=== PATIENT | female | born 1960 | race Two or more races ===

== ENCOUNTER 2022-07-23 15:51 | Emergency (ER) | payer MEDICAID, OTHER ==
[~2022-07-23] VITALS: Ht 157.5 cm; Wt 68.0 kg
[2022-07-23 17:31] VITALS: BP 174/78
[2022-07-23] MEDS ORDERED: HYDR-4902 PO (18:18)
[2022-07-23] MEDS ORDERED: HYDROcodone-ACET 5/325MG TAB PO ONE (18:30)
== END 2022-07-23 19:15 | disposition home or self-care (01) ==
LOC: ER 15:51
DX: S92.812A Other fracture of left foot, initial encounter for closed fracture (principal); X58.XXXA Exposure to other specified factors, initial encounter; Y93.89 Activity, other specified; Y92.89 Other specified places as the place of occurrence of the external cause; Y99.8 Other external cause status
CPT/HCPCS: 29515; 73610; 73630

== ENCOUNTER 2023-12-17 07:53 | Emergency (ER) | payer MEDICAID ==
[~2023-12-17] VITALS: Ht 154.9 cm; Wt 67.3 kg
[~2023-12-17 07:53] MED LIST: HYDR-4902 PO
[2023-12-17 08:02] VITALS: TEMP 97
[2023-12-17 09:36] VITALS: PULSE 117; RESP 18; O2SAT 96
[2023-12-17] MEDS: ACETAMINOPHEN 325 MG TAB PO ONE (10:29)
[2023-12-17 10:38] LABS: Basophils # (auto) 0.1 10 ^3/uL (0-0.2); Basophils % (auto) 0.7 % (0.0-2.0); Eosinophils # (auto) 0.1 10 ^3/uL (0-0.8); Eosinophils % (auto) 1.6 % (0.0-7.0); Hematocrit 42.6 % (36.0-46.0); Hemoglobin 14.7 g/dL (12.2-16.2); Lymphocytes # (auto) 2.5 10 ^3/uL (0.4-5.4); Lymphocytes % (auto) 29.1 % (10.0-50.0); Mean Corpuscular Hemoglobin 33.2 pg (28.0-32.0); Mean Corpuscular Hgb Conc. 34.5 g/dL (32.0-36.0); Mean Corpuscular Volume 96.3 fL (80.0-100.0); Monocytes # (auto) 0.5 10 ^3/uL (0-1.3); Monocytes % (auto) 6.3 % (0.0-12.0); Neutrophils # (auto) 5.3 10 ^3/uL (1.6-8.6); Neutrophils % (auto) 62.3 % (37.0-80.0); Nucleated Red Blood Cells % 0.1 %; Platelet Count (auto) 153 10^3/uL (140-450); Red Blood Cells 4.43 10^6/uL (4.0-5.20); Red Cell Distribution Width 13.6 % (11.8-14.3); White Blood Cell 8.4 10^3/uL (4.4-10.8)
[2023-12-17 10:47] LABS: Chloride 101 mmol/L (98-107); Sodium 136 mmol/L (136-145)
[2023-12-17 10:48] LABS: Anion Gap 8 (5-15); Carbon Dioxide 27 mmol/L (20-31)
[2023-12-17 10:53] LABS: BUN/Creatinine Ratio 9.6 (10.0-20.0); Blood Urea Nitrogen 7 mg/dL (9-23); Glucose 214 mg/dL (74-106)
[2023-12-17] MEDS: SILVER NITRATE-POTAS NITRA STICK TOP ONE (11:10)
[2023-12-17] MEDS: LIDOCAINE W/ EPINEPHRINE 2% INJ 20ML VIAL ID ONE (11:10)
[2023-12-17] MEDS: OXYMETAZOLINE HCL 0.05 % NASAL SPRAY 15ML EACHNOSTRI ONE (11:10)
[2023-12-17 12:12] LABS: INR 1.05 (0.9-1.15); Prothrombin Time 11.1 sec (9.3-11.8)
[2023-12-17 12:35] VITALS: BP 115/63; PULSE 86; RESP 16; O2SAT 97
[2023-12-17] MEDS ORDERED: AUG875T PO (12:41)
[2023-12-18] MEDS ORDERED: HYDR-4072 PO (02:23)
== END 2023-12-17 13:03 | disposition home or self-care (01) ==
LOC: ER 07:53
DX: R04.0 Epistaxis (principal); J32.9 Chronic sinusitis, unspecified; I10 Essential (primary) hypertension; E11.9 Type 2 diabetes mellitus without complications
CPT/HCPCS: 30901; 36415; 70450; 80048; 82962; 85025; 85610; 93005

== ENCOUNTER 2023-12-17 22:43 | Emergency (ER) | payer MEDICAID ==
[~2023-12-17] VITALS: Ht 154.9 cm; Wt 68.2 kg
[~2023-12-17 22:43] MED LIST changes: +AUG875T PO
[2023-12-17 23:45] LABS: Basophils # (auto) 0 10 ^3/uL (0-0.2); Basophils % (auto) 0.5 % (0.0-2.0); Eosinophils # (auto) 0.2 10 ^3/uL (0-0.8); Eosinophils % (auto) 2.6 % (0.0-7.0); Hematocrit 39.1 % (36.0-46.0); Hemoglobin 13.5 g/dL (12.2-16.2); Lymphocytes # (auto) 2.7 10 ^3/uL (0.4-5.4); Lymphocytes % (auto) 34.6 % (10.0-50.0); Mean Corpuscular Hemoglobin 33.3 pg (28.0-32.0); Mean Corpuscular Hgb Conc. 34.6 g/dL (32.0-36.0); Mean Corpuscular Volume 96.3 fL (80.0-100.0); Monocytes # (auto) 0.6 10 ^3/uL (0-1.3); Monocytes % (auto) 7.6 % (0.0-12.0); Neutrophils # (auto) 4.2 10 ^3/uL (1.6-8.6); Neutrophils % (auto) 54.7 % (37.0-80.0); Platelet Count (auto) 137 10^3/uL (140-450); Red Blood Cells 4.06 10^6/uL (4.0-5.20); Red Cell Distribution Width 13.7 % (11.8-14.3); White Blood Cell 7.7 10^3/uL (4.4-10.8)
[2023-12-17] MEDS: HYDROcodone-ACET 10/325MG TAB PO ONE (23:49)
[2023-12-17 23:54] LABS: Chloride 101 mmol/L (98-107); Potassium 4.3 mmol/L (3.5-5.1); Sodium 135 mmol/L (136-145)
[2023-12-17 23:55] LABS: Calcium 9.7 mg/dL (8.7-10.4); Carbon Dioxide 29 mmol/L (20-31)
[2023-12-18] LABS: BUN/Creatinine Ratio 15.7 (10.0-20.0); Blood Urea Nitrogen 13 mg/dL (9-23); Glucose 230 mg/dL (74-106)
[2023-12-18 00:08] LABS: INR 1.05 (0.9-1.15); Prothrombin Time 11.1 sec (9.3-11.8)
[2023-12-18 00:09] LABS: Anion Gap 5 (5-15)
[2023-12-18] MEDS ORDERED: HYDR-4072 PO (02:23)
[2023-12-18] MEDS: cloNIDine HCL 0.1 MG TAB PO ONE (02:42)
[2023-12-18 02:46] VITALS: BP 183/122; TEMP 97.7
[2023-12-18 02:54] VITALS: PULSE 76; RESP 16; O2SAT 96
== END 2023-12-18 03:53 | disposition home or self-care (01) ==
LOC: ER 22:43
DX: R04.0 Epistaxis (principal); I10 Essential (primary) hypertension; E11.9 Type 2 diabetes mellitus without complications
CPT/HCPCS: 30901; 36415; 80048; 85025; 85610

== ENCOUNTER 2024-04-15 06:33 | Inpatient (IN) | payer MEDICAID ==
[2024-04-15] VITALS (7 sets, daily range): BP systolic 83–121; BP diastolic 36–49; PULSE 63–112; RESP 16–30; TEMP 98.3–100.6; O2SAT 94–98
[~2024-04-15] VITALS: Ht 154.9 cm; Wt 70.4 kg
[~2024-04-15 06:33] MED LIST changes: +HYDR-4072 PO
--- NOTE | 2024-04-15 07:20 | DVH ---
EXAM: XR Chest, 1 View CLINICAL INDICATION: Hypotension TECHNIQUE: Frontal view of the chest. COMPARISON: None FINDINGS: LUNGS AND PLEURAL SPACES: Unremarkable. No consolidation. No pneumothorax. HEART: Unremarkable. No cardiomegaly. MEDIASTINUM: Unremarkable. Normal mediastinal contour. BONES/JOINTS: Unremarkable. No acute fracture. OTHER FINDINGS: . None. IMPRESSION: No acute cardiopulmonary process.
[2024-04-15] MEDS: SODIUM CHLORIDE 0.9% 2,000 ML IV ONE (08:01)
[2024-04-15] MEDS: ONDANSETRON HCL 4 MG/2 ML VIAL IV ONE (08:07)
[2024-04-15] MEDS: ACETAMINOPHEN 325 MG TAB PO ONE (08:09)
[2024-04-15] MEDS: VANCOMYCIN 1GM/250ML KIT 200 ML IV ONE (08:10)
[2024-04-15 08:11] LABS: Basophils # (auto) 0 10 ^3/uL (0-0.2); Basophils % (auto) 0.2 % (0.0-2.0); Eosinophils # (auto) 0 10 ^3/uL (0-0.8); Eosinophils % (auto) 0.3 % (0.0-7.0); Hematocrit 41.5 % (36.0-46.0); Hemoglobin 13.9 g/dL (12.2-16.2); Lymphocytes # (auto) 0.8 10 ^3/uL (0.4-5.4); Lymphocytes % (auto) 5.2 % (10.0-50.0); Mean Corpuscular Hemoglobin 31.5 pg (28.0-32.0); Mean Corpuscular Hgb Conc. 33.4 g/dL (32.0-36.0); Mean Corpuscular Volume 94.2 fL (80.0-100.0); Monocytes # (auto) 0.9 10 ^3/uL (0-1.3); Monocytes % (auto) 5.8 % (0.0-12.0); Neutrophils # (auto) 13.4 10 ^3/uL (1.6-8.6); Neutrophils % (auto) 88.5 % (37.0-80.0); Platelet Count (auto) 151 10^3/uL (140-450); Red Blood Cells 4.41 10^6/uL (4.0-5.20); Red Cell Distribution Width 12.7 % (11.8-14.3); White Blood Cell 15.1 10^3/uL (4.4-10.8)
[2024-04-15 08:12] LABS: Urine Bacteria None Seen /hpf (None Seen)
[2024-04-15 08:39] LABS: Urine Blood 2+ /uL (Negative); Urine Clarity Ex.Turbid (Clear); Urine Protein, UAD 1+ (Negative); Urine Specific Gravity 1.009 (1.001-1.035); Urine Squamous Epithelial Cell FEW /hpf (<5); Urine Urobilinogen Normal (Negative); Urine WBC 1635 /HPF (0-5); Urine WBC Clumps PRESENT /hpf (None Seen); Urine pH 5.5 (5.0-9.0)
[2024-04-15] MEDS: CEFEPIME 2GM/50ML NS 50 ML IV ONE (08:40)
[2024-04-15 08:41] LABS: Urine Color DARK YELLOW (Yellow)
[2024-04-15 08:46] LABS: Alanine Aminotransferase 20 U/L (7-40); Albumin 4.1 g/dL (3.2-4.8); Anion Gap 10 (5-15); Aspartate Aminotransferase 24 U/L (13-40); BUN/Creatinine Ratio 15.9 (10.0-20.0); Bilirubin, Total 0.9 mg/dL (0.2-1.0); Blood Urea Nitrogen 21 mg/dL (9-23); Calcium 9.6 mg/dL (8.7-10.4); Carbon Dioxide 26 mmol/L (20-31); Potassium 3.5 mmol/L (3.5-5.1)
[2024-04-15 08:47] LABS: Total Protein 7.5 g/dL (5.7-8.2)
[2024-04-15 08:48] LABS: Alkaline Phosphatase 129 U/L (46-116); Chloride 98 mmol/L (98-107); Glucose 248 mg/dL (74-106); Sodium 134 mmol/L (136-145)
--- NOTE | 2024-04-15 09:18 | ED.PDOC ---
History of Present Illness HPI Comments 63F presents with 5 days of dysuria, polyuria, 6/10 lower abdominal pain that radiates to her back. She also reports having fever chills and generalized weakness. She has not taken any medications for this yet. She has no exacerbating or alleviating factors. Chief Complaint: Abdominal Pain Time Seen by MD: 06:53 Allergies: Coded Allergies: NO KNOWN ALLERGIES (Unverified , 07/23/22) Home Meds Active Scripts Hydrocodone-Acetaminophen (Hydrocodone/Acetaminophen 10-325 mg) 1 Tab Tab, 1 TAB PO QIDPRN, #20 TAB Prov:LISA PALUMBO MD 12/18/23 Amoxicillin & Pot Clavulanate (AUGMENTIN TABLET) 875 Mg Tb, 875 MG PO BID for 5 Days, #10 TAB Prov:JER SOSA MD 12/17/23 Hydrocodone-Acetaminophen (Hydrocodone Bitartrate/AC 5-325 mg) 1 Tab Tab, 1 TAB PO BID PRN, #12 TAB 0 Refills Prov:RAFAELA HINOJOSA [facility] 07/23/22 Mode of Arrival: Ambulatory Past Medical History PAST MEDICAL HISTORY: DM, HTN Surgical History: Denies all surgeries [employer] History: No Pertinent [employer] History Family History Family History: Reviewed,noncontributory to illness, Unknown Social History Smoker: Non-Smoker Alcohol: Occasionally Drugs: Denies Drug Use Lives In: Home All Other Systems: Reviewed and Negative Physical Exam General Appearance: Mild Distress HEENT: Normal ENT Inspection Neck: Normal Respiratory: No Respiratory Distress Cardiovascular: Tachycardia Breast Exam: Deferred Gastrointestinal: Suprapubic, Tenderness Genitalia: Deferred Pelvic: Deferred Rectal: Deferred Extremities: Normal range of motion Neurologic: No Motor Deficits Cerebellar Function: NOT DONE Reflexes: NOT DONE Skin: Dry Lymphatic: NOT DONE Was a procedure done? Was a procedure done?: No Differential Dx Considerations may include: Pyelo, urinary tract infection, sepsis, myalgias X-Ray, Labs, Meds, VS Vital Signs Date Time Temp Pulse Resp B/P (MAP) Pulse Ox O2 Delivery O2 Flow Rate FiO2 04/15/24 06:45 98.4 88 18 89/47 (61) 96 Lab Test 04/15/24 07:25 04/15/24 06:45 Range/Units White Blood Count 15.1 H 4.4-10.8 10^3/uL Red Blood Count 4.41 4.0-5.20 10^6/uL Hemoglobin 13.9 12.2-16.2 g/dL Hematocrit 41.5 36.0-46.0 % Mean Corpuscular Volume 94.2 80.0-100.0 fL Mean Corpuscular Hemoglobin 31.5 28.0-32.0 pg Mean Corpuscular Hemoglobin Concent 33.4 32.0-36.0 g/dL Red Cell Distribution Width 12.7 11.8-14.3 % Platelet Count 151 140-450 10^3/uL Mean Platelet Volume 9.5 6.9-10.8 fL Neutrophils (%) (Auto) 88.5 H 37.0-80.0 % Lymphocytes (%) (Auto) 5.2 L 10.0-50.0 % Monocytes (%) (Auto) 5.8 0.0-12.0 % Eosinophils (%) (Auto) 0.3 0.0-7.0 % Basophils (%) (Auto) 0.2 0.0-2.0 % Neutrophils # (Auto) 13.4 H 1.6-8.6 10 ^3/uL Lymphocytes # (Auto) 0.8 0.4-5.4 10 ^3/uL Monocytes # (Auto) 0.9 0-1.3 10 ^3/uL Eosinophils # (Auto) 0 0-0.8 10 ^3/uL Basophils # (Auto) 0 0-0.2 10 ^3/uL Nucleated Red Blood Cells 0.0 % Sodium Level 134 L 136-145 mmol/L Potassium Level 3.5 3.5-5.1 mmol/L Chloride Level 98 98-107 mmol/L Carbon Dioxide Level 26 20-31 mmol/L Anion Gap 10 5-15 Blood Urea Nitrogen 21 9-23 mg/dL Creatinine 1.32 H 0.550-1.02 mg/dL Glomerular Filtration Rate Calc 46 >90 mL/min BUN/Creatinine Ratio 15.9 10.0-20.0 Serum Glucose 248 H 74-106 mg/dL Lactic Acid Level 1.7 0.4-2.0 mmol/L Calcium Level 9.6 8.7-10.4 mg/dL Total Bilirubin 0.9 0.2-1.0 mg/dL Aspartate Amino Transferase (AST) 24 13-40 U/L Alanine Aminotransferase (ALT) 20 7-40 U/L Alkaline Phosphatase 129 H 46-116 U/L Total Protein 7.5 5.7-8.2 g/dL Albumin 4.1 3.2-4.8 g/dL Urine Color Dark yellow Yellow Urine Clarity Ex.turbid Clear Urine pH 5.5 5.0-9.0 Urine Specific [place] 1.009 1.001-1.035 Urine Protein 1+ H Negative Urine Ketones Negative Negative Urine Blood 2+ H Negative /uL Urine Nitrite Negative Negative Urine Bilirubin Negative Negative Urine Urobilinogen Normal Negative mg/dL Urine Leukocyte Esterase 3+ Negative /uL Urine RBC 25 0 - 4 /hpf Urine WBC Clumps Present None Seen /hpf Urine Microscopic WBC 1635 H 0-5 /HPF Urine Squamous Epithelial Cells Few <5 /hpf Urine Bacteria None seen None Seen /hpf Urine Glucose 2+ H Normal mg/dL Current Medications Medications (Trade) Dose Ordered Sig/Bull Route Start Time Stop Time Status Last Admin Sodium Chloride 2,000 ml @ 1,000 mls/hr Q2H ONCE IV 04/15/24 07:00 04/15/24 08:59 DC 04/15/24 08:01 Ondansetron HCl (Zofran) 4 mg ONCE ONCE IV 04/15/24 07:00 04/15/24 07:01 DC 04/15/24 08:07 Acetaminophen (Tylenol Tablet) 650 mg ONCE ONCE PO 04/15/24 07:00 04/15/24 07:01 DC 04/15/24 08:09 Vancomycin HCl 200 ml @ 200 mls/hr ONCE ONCE IV 04/15/24 07:00 04/15/24 07:59 DC 04/15/24 08:10 Time of 1ST Reevaluation: 09:20 Reevaluation 1ST: Improved Patient Education/Counseling: Diagnosis, Treatment Family Education/Counseling: No Family Present Departure 1 Departure Time of Disposition: 09:21 (Patient with a urinary tract infection concerning for sepsis. We will empirically cover patient with antibiotics give patient the full fluid bolus the patient for further workup. Patient's blood pressure has been improving with the fluid bolus.) Impression: Primary Impression: Sepsis Qualified Codes: A41.9 - Sepsis, unspecified organism; R65.21 - Severe sepsis with septic shock; G72.81 - Critical illness myopathy Additional Impression: Urinary tract infection Qualified Codes: N30.00 - Acute cystitis without hematuria Disposition: ADMITTED INPATIENT Admit to: Tele Condition: Guarded Critical Care Note Critical Care Time?: Yes Critical care comment: Sepsis Authorized and Performed by: Juliano Cooney MD Total critical care time: Approximately 36 minutes Due to a high probability of clinically significant, life threatening deterioration, the patient required my highest level of preparedness to intervene emergently and I personally spent this critical care time directly and personally managing the patient. This critical care time included obtaining a history; examining the patient; pulse oximetry; ordering and review of studies; arranging urgent treatment with development of a management plan; evaluation of patient's response to treatment; frequent reassessment; and, discussions with other providers. This critical care time was performed to assess and manage the high probability of imminent, life-threatening deterioration that could result in multi-organ failure. It was exclusive of separately billable procedures and treating other patients and teaching time. Please see my other sections and the rest of the note for further information on patient assessment and treatment. Stability Stability form required: No Heart Score Heart Score: Heart Score Response (Comments) Value History N/A 0 EKG N/A 0 Age N/A 0 Risk Factors N/A 0 Troponin N/A 0 Total 0 JULIANO COONEY MD Apr 15, 2024 09:18
[2024-04-15] MEDS ORDERED: URSO300C2 PO (10:09)
[2024-04-15] MEDS ORDERED: LISI10TA34 PO (10:09)
[2024-04-15] MEDS ORDERED: METF-370 PO (10:09)
[2024-04-15] MEDS ORDERED: DEXTROSE (50%) 50ML SYRG IV PRN (10:15)
--- NOTE | 2024-04-15 10:32 | DVHHP2 ---
History of Present Illness Reason for Visit: Pelvic pain History of Present Illness Honey Galan is a 63-year-old female with past medical history of diabetes, hypertension, and fatty liver, who came in due to abdominal pain. Patient states her pain is in her lower abdomen/pelvic region, it started last Saturday with associated dysuria and frequency. She states her symptoms where worsening and progressed to bilateral flank pain causing her to come in. Cardiovascular: HTN Hepatobiliary: Other (fatty liver) Endocrine: Diabetes Past Surgical History: Cholecystectomy, Cataract Removal (bilateral) Smoke: No ALCOHOL: rare Drugs: None Lives: with Family Domestic Violence: Neg Review of Systems Constitutional: Yes: Fever, Chills; No: Sweats, Weakness, Malaise, Other Eyes: No: Pain, Vision change, Conjunctivae inflammation, Eyelid inflammation, Other, Redness ENT: No: Ear pain, Ear discharge, Nose pain, Nose discharge, Nose congestion, Mouth pain, Mouth swelling, Throat pain, Throat swelling, Other Respiratory: No: Cough, Dry, Shortness of breath, SOB with excertion, Wheezing, Hemoptysis, Pleuritic Pain, Sputum, Wheezing, Other Cardiovascular: No: Chest Pain, Palpitations, Orthopnea, Paroxysmal Noc. Dyspnea, Edema, Lt Headedness, Other Gastrointestinal: Nausea, Abdominal Pain (pelvic pain); No: Vomiting, Diarrhea, Constipation, Melena, Hematochezia, Other Genitourinary: No Dysuria, No Frequency, No Incontinence, No Hematuria, No Retention, No Other Musculoskeletal: back pain (bilateral flank pain); No: other, neck pain, shoulder pain, arm pain, hand pain, leg pain, foot pain Skin: No: Rash, Lesions, Jaundice, Bruising, Other Neurological: No: Weakness, Numbness, Incoordination, Change in speech, Confusion, Seizures, Other Allergies: Coded Allergies: NO KNOWN ALLERGIES (Unverified , 07/23/22) Medications Current Medications Medications Dose Ordered Sig/Bull Route Start Time Stop Time Status Last Admin Dose Admin Acetaminophen/ Hydrocodone Bitart 1 tab Q4HP PRN PO 04/15/24 10:15 UNV Ondansetron HCl 4 mg Q4HP PRN IV 04/15/24 10:15 UNV Docusate Sodium 100 mg BIDPRN PRN PO 04/15/24 10:15 UNV Acetaminophen 650 mg Q6HP PRN PO 04/15/24 10:15 UNV Ceftriaxone Sodium 50 ml @ 100 mls/hr DAILY@09 IV 04/16/24 09:00 UNV Exam Vital Signs Vital Signs Date Time Temp Pulse Resp B/P (MAP) Pulse Ox O2 Delivery O2 Flow Rate FiO2 04/15/24 06:45 98.4 88 18 89/47 (61) 96 General Appearance: Alert, Oriented X3, Cooperative, mild distress HEENT: Atraumatic, PERRLA Respiratory: Clear to auscultation, Normal air movement Cardiovascular: Regular rate, Normal S1, Normal S2, No murmurs Abdominal: Normal bowel sounds, Soft, Other (abdominal pain that radiates to bilateral flank pain) Extremities: No clubbing, No cyanosis, No edema, Normal pulses Skin: No rashes, No breakdown, No significant lesion Neuro: Normal gait, Normal speech, Strength at 5/5 X4 ext, Normal tone Psych/Mental Status: Mental status NL, Mood NL Labs/Xrays Labs Test 04/15/24 07:25 04/15/24 06:45 Range/Units White Blood Count 15.1 H 4.4-10.8 10^3/uL Red Blood Count 4.41 4.0-5.20 10^6/uL Hemoglobin 13.9 12.2-16.2 g/dL Hematocrit 41.5 36.0-46.0 % Mean Corpuscular Volume 94.2 80.0-100.0 fL Mean Corpuscular Hemoglobin 31.5 28.0-32.0 pg Mean Corpuscular Hemoglobin Concent 33.4 32.0-36.0 g/dL Red Cell Distribution Width 12.7 11.8-14.3 % Platelet Count 151 140-450 10^3/uL Mean Platelet Volume 9.5 6.9-10.8 fL Neutrophils (%) (Auto) 88.5 H 37.0-80.0 % Lymphocytes (%) (Auto) 5.2 L 10.0-50.0 % Monocytes (%) (Auto) 5.8 0.0-12.0 % Eosinophils (%) (Auto) 0.3 0.0-7.0 % Basophils (%) (Auto) 0.2 0.0-2.0 % Neutrophils # (Auto) 13.4 H 1.6-8.6 10 ^3/uL Lymphocytes # (Auto) 0.8 0.4-5.4 10 ^3/uL Monocytes # (Auto) 0.9 0-1.3 10 ^3/uL Eosinophils # (Auto) 0 0-0.8 10 ^3/uL Basophils # (Auto) 0 0-0.2 10 ^3/uL Nucleated Red Blood Cells 0.0 % Sodium Level 134 L 136-145 mmol/L Potassium Level 3.5 3.5-5.1 mmol/L Chloride Level 98 98-107 mmol/L Carbon Dioxide Level 26 20-31 mmol/L Anion Gap 10 5-15 Blood Urea Nitrogen 21 9-23 mg/dL Creatinine 1.32 H 0.550-1.02 mg/dL Glomerular Filtration Rate Calc 46 >90 mL/min BUN/Creatinine Ratio 15.9 10.0-20.0 Serum Glucose 248 H 74-106 mg/dL Lactic Acid Level 1.7 0.4-2.0 mmol/L Calcium Level 9.6 8.7-10.4 mg/dL Total Bilirubin 0.9 0.2-1.0 mg/dL Aspartate Amino Transferase (AST) 24 13-40 U/L Alanine Aminotransferase (ALT) 20 7-40 U/L Alkaline Phosphatase 129 H 46-116 U/L Total Protein 7.5 5.7-8.2 g/dL Albumin 4.1 3.2-4.8 g/dL Urine Color Dark yellow Yellow Urine Clarity Ex.turbid Clear Urine pH 5.5 5.0-9.0 Urine Specific [place] 1.009 1.001-1.035 Urine Protein 1+ H Negative Urine Ketones Negative Negative Urine Blood 2+ H Negative /uL Urine Nitrite Negative Negative Urine Bilirubin Negative Negative Urine Urobilinogen Normal Negative mg/dL Urine Leukocyte Esterase 3+ Negative /uL Urine RBC 25 0 - 4 /hpf Urine WBC Clumps Present None Seen /hpf Urine Microscopic WBC 1635 H 0-5 /HPF Urine Squamous Epithelial Cells Few <5 /hpf Urine Bacteria None seen None Seen /hpf Urine Glucose 2+ H Normal mg/dL EXAM: XR Chest, 1 View FINDINGS: LUNGS AND PLEURAL SPACES: Unremarkable. No consolidation. No pneumothorax. HEART: Unremarkable. No cardiomegaly. MEDIASTINUM: Unremarkable. Normal mediastinal contour. BONES/JOINTS: Unremarkable. No acute fracture. OTHER FINDINGS: . None. IMPRESSION: No acute cardiopulmonary process. Assessment/Plan Assessment/Plan Assessment: Pyelonephritis, Complicated UTI, Uncontrolled diabetes, Hypertension, Plan: Admit to Med-Surg, IV hydration, IV antibiotics, Urine culture, Pain management, A1c, Accu checks Q AC & HS with sliding scale, Home medications reconciled, Plan discussed with: Patient My Orders Orders - DAVID JAEGER Procedure Category Date Status Time Admit ADMIT 04/15/24 Transmitted 10:02 Code Status CODE 04/15/24 Transmitted 10:02 2 Gm Sodium Diet DIET 04/15/24 Transmitted Lunch Hydrocodone-Acet PHA 04/15/24 Logged 5/325mg Tab ([place] 10:15 Ondansetron Hcl PHA 04/15/24 Logged (Zofran) 10:15 Docusate Sodium PHA 04/15/24 Logged Capsule ([place]ace 10:15 Complete Blood Count LAB 04/16/24 Verified 04:00 Comprehensive LAB 04/16/24 Verified Metabolic Panel 04:00 Condition: Serious CINTHIA 04/15/24 In Process 10:02 Acetaminophen Tablet PHA 04/15/24 Logged (Tylenol Tablet) 10:15 Ceftriaxone 1gm/50ml PHA 04/16/24 Logged D5w (Rocephin) 09:00 Glucose Blood PHA 04/15/24 Verified (Accu-Chek Comfort 11:30 Bedtime Insulin Scale PHA 04/15/24 Verified 22:00 Moderate Insulin Ss PHA 04/15/24 Verified 11:30 Dextrose 50% Syringe PHA 04/15/24 Verified 10:15 Ursodiol (Actigall) PHA 04/15/24 Verified 22:00 (Nf) Lisinopril PHA 04/15/24 Verified 22:00 Date of Service: Apr 15, 2024 Billing Provider: DAVID JAEGER Common Visit Codes: [id number] INP/OBS CARE (MOD) DAVID JAEGER Apr 15, 2024 10:32
[2024-04-15] MEDS: SODIUM CHLORIDE 0.9% 1,000 ML IV ONE ×2 (10:57→15:45)
[2024-04-15] MEDS: LISINOPRIL 5 MG TAB PO SCH (11:00)
[2024-04-15] MEDS: ACCU-CHEK COMFORT CURVE STRIP VI SCH (11:30)
[2024-04-15] MEDS: ONDANSETRON HCL 4 MG/2 ML VIAL IV PRN (12:21)
[2024-04-15] MEDS: HYDROcodone-ACET 5/325MG TAB PO PRN (12:22)
[2024-04-15] MEDS: InsuLIN REG 1unit/0.01ml Soln (100units/ml) SC SCH ×2 (12:27→21:07)
[2024-04-15] MEDS: ACETAMINOPHEN 325 MG TAB PO PRN (13:41)
[2024-04-15] MEDS: SOD CHL 0.45% 1,000 ML IV ONE (20:53)
[2024-04-15] MEDS: URSODIOL 300 MG CAP PO SCH (21:01)
[2024-04-16 06:46] LABS: Alanine Aminotransferase 16 U/L (7-40); Albumin 3.2 g/dL (3.2-4.8); Alkaline Phosphatase 102 U/L (46-116); Anion Gap 10 (5-15); Aspartate Aminotransferase 21 U/L (13-40); Bilirubin, Total 0.5 mg/dL (0.2-1.0); Blood Urea Nitrogen 18 mg/dL (9-23); Carbon Dioxide 22 mmol/L (20-31); Chloride 106 mmol/L (98-107); Potassium 3.9 mmol/L (3.5-5.1); Sodium 138 mmol/L (136-145); Total Protein 6.1 g/dL (5.7-8.2)
[2024-04-16 06:52] LABS: Calcium 8.3 mg/dL (8.7-10.4); Glucose 155 mg/dL (74-106)
[2024-04-16 07:10] LABS: Basophils # (auto) 0 10 ^3/uL (0-0.2); Basophils % (auto) 0.2 % (0.0-2.0); Eosinophils # (auto) 0.1 10 ^3/uL (0-0.8); Eosinophils % (auto) 0.4 % (0.0-7.0); Hematocrit 37.1 % (36.0-46.0); Hemoglobin 12.4 g/dL (12.2-16.2); Lymphocytes % (auto) 6.8 % (10.0-50.0); Mean Corpuscular Hemoglobin 31.8 pg (28.0-32.0); Mean Corpuscular Hgb Conc. 33.4 g/dL (32.0-36.0); Mean Corpuscular Volume 95.2 fL (80.0-100.0); Monocytes # (auto) 1.4 10 ^3/uL (0-1.3); Monocytes % (auto) 9.2 % (0.0-12.0); Neutrophils # (auto) 12.5 10 ^3/uL (1.6-8.6); Neutrophils % (auto) 83.4 % (37.0-80.0); Nucleated Red Blood Cells % 0.1 %; Platelet Count (auto) 115 10^3/uL (140-450); Red Cell Distribution Width 13.2 % (11.8-14.3)
[2024-04-16 07:53] VITALS: PULSE 90; RESP 24; O2SAT 97
[2024-04-16] MEDS: cefTRIAXone 1GM/50ML D5W 50 ML IV SCH (09:02)
[2024-04-16 10:30] VITALS: BP 133/62; PULSE 97; TEMP 99.3; O2SAT 98
--- NOTE | 2024-04-16 12:17 | DVHPN2 ---
Subjective Patient reporting generalized body aches, bilateral flank plain, suprapubic pain. Reviewed: Care Plan, H&P Changes from previous H/P or p: No Changes General: Per HPI Eyes: No Pain, No Vision change, No Conjunctivae inflammation, No Eyelid inflammation, No Other, No Redness ENT: No Ear pain, No Ear discharge, No Nose pain, No Nose discharge, No Nose congestion, No Mouth pain, No Mouth swelling, No Throat pain, No Throat swelling, No Other Cardiovascular: No Chest Pain, No Palpitations, No Orthopnea, No Paroxysmal Noc. Dyspnea, No Edema, No Lt Headedness, No Other Respiratory: No Cough, No Dry, No Shortness of breath, No SOB with excertion, No Wheezing, No Hemoptysis, No Pleuritic Pain, No Sputum, No Other Gastrointestinal: Nausea; No Vomiting; Abdominal Pain (pelvic pain); No Diarrhea, No Constipation, No Melena, No Hematochezia, No Other Genitourinary: No Dysuria, No Frequency, No Incontinence, No Hematuria, No Retention, No Other Musculoskeletal: No other, No neck pain, No shoulder pain, No arm pain; back pain (bilateral flank pain); No hand pain, No leg pain, No foot pain Skin: No Rash, No Lesions, No Jaundice, No Bruising, No Other Objective Vitals Vital Signs Date Time Temp Pulse Resp B/P (MAP) Pulse Ox O2 Delivery O2 Flow Rate FiO2 04/16/24 10:30 99.3 97 133/62 (85) 98 99.3 04/16/24 07:53 24 Room Air* 0 21 Intake/Output Intake and Output 04/16/24 07:00 Intake Total 2000 ml Balance 2000 ml Intake IV Total 2000 ml # Voids 3 General Appearance: Alert, Oriented X3, Cooperative, mild distress HEENT: Atraumatic, PERRLA Lungs: Clear to auscultation, Normal air movement Cardiovascular: Normal S1, Normal S2 Musculoskeletal: Normal sensory function Extremities: No clubbing, No cyanosis, No edema Psych/Mental Status: Mental status NL, Mood NL Medications Current Medications Medications Dose Ordered Sig/Bull Route Start Time Stop Time Status Last Admin Dose Admin Acetaminophen/ Hydrocodone Bitart 1 tab Q4HP PRN PO 04/15/24 10:15 04/16/24 01:18 1 TAB Ondansetron HCl 4 mg Q4HP PRN IV 2/26/25 10:15 04/16/24 06:06 4 MG Docusate Sodium 100 mg BIDPRN PRN PO 04/15/24 10:15 Acetaminophen 650 mg Q6HP PRN PO 04/15/24 10:15 04/16/24 11:53 650 MG Diagnostic Test (Pha) 1 strip ACHS 04/15/24 11:30 04/16/24 11:54 1 STRIP Insulin Human Regular HS SC 04/15/24 22:00 04/15/24 21:07 4 UNITS Insulin Human Regular AC SC 04/15/24 11:30 04/16/24 11:52 2 UNITS Dextrose 50 ml UD PRN IV 04/15/24 10:15 Ursodiol 300 mg BID PO 04/15/24 22:00 04/16/24 10:01 300 MG Lisinopril 10 mg DAILY PO 04/15/24 11:00 04/16/24 10:11 10 MG Meropenem 50 ml @ 17 mls/hr Q8HR IV 04/16/24 14:00 UNV Laboratory Results Laboratory Tests 04/16/24 06:00 Chemistry Test 04/16/24 06:00 Albumin 3.2 g/dL (3.2-4.8) Calcium Level 8.3 mg/dL (8.7-10.4) L Total Protein 6.1 g/dL (5.7-8.2) LFT Test 04/16/24 06:00 Alanine Aminotransferase (ALT) 16 U/L (7-40) Alkaline Phosphatase 102 U/L (46-116) Aspartate Amino Transferase (AST) 21 U/L (13-40) Total Bilirubin 0.5 mg/dL (0.2-1.0) Urinalysis Test 04/15/24 06:45 Urine Color Dark yellow (Yellow) Urine Clarity Ex.turbid (Clear) Urine pH 5.5 (5.0-9.0) Urine Specific [place] 1.009 (1.001-1.035) Urine Protein 1+ (Negative) H Urine Ketones Negative (Negative) Urine Blood 2+ /uL (Negative) H Urine Nitrite Negative (Negative) Urine Bilirubin Negative (Negative) Urine Urobilinogen Normal mg/dL (Negative) Urine Leukocyte Esterase 3+ /uL (Negative) Urine RBC 25 /hpf (0 - 4) Urine WBC Clumps Present /hpf (None Seen) Urine Microscopic WBC 1635 /HPF (0-5) H Urine Squamous Epithelial Cells Few /hpf (<5) Urine Bacteria None seen /hpf (None Seen) Urine Glucose 2+ mg/dL (Normal) H Microbiology Microbiology Date/Time Source Procedure Growth Status 04/15/24 07:43 Blood Blood Culture - Preliminary Resulted 04/15/24 06:45 Voided Urine Urine Culture - Preliminary Resulted Labs and/or images reviewed: Labs reviewed by me, Image(s) reviewed by me Assessment/Plan Assessment/Plan Impression: -sepsis with Gram-negative rods in blood -complicated cystitis -diabetes mellitus, uncontrolled -primary hypertension Plan: -change antibiotic therapy to meropenem -blood and urine cultures: Both with Gram-negative rods -regular insulin sliding scale -restart IV hydration -pain management -transferred to telemetry floor -CT scan of abdomen and pelvis -echocardiogram: Indications, rule out endocarditis given bacteremia Total time spent with patient discussing and formulating plan of care: 35 minutes. This medical document was created using an electronic medical record system with [employer] dictation system. Although this document has been carefully reviewed, there may still be some phonetic and typographical errors. These areas are purely typographical due to imperfections of the software programs, and do not reflect any compromise in the patient's medical care. Plan discussed with: Patient, Other (RN) My Orders Orders - ERIN HAYWARD NP Procedure Category Date Status Time Meropenem 1gm Ivpb PHA 04/16/24 Logged (Merrem 1gm/ Ns) 14:00 Basic Metabolic Panel LAB 04/17/24 Verified 04:00 Complete Blood Count LAB 04/17/24 Verified 04:00 Ct Ab Pel Wo Con-No CT 04/16/24 Logged Oral Or Iv 12:09 Echo 2d Mode Cardiac US 04/16/24 Transmitted DOP 12:09 NS PHA 04/16/24 Transmitted 12:15 Date of Service: Apr 16, 2024 Billing Provider: ERIN HAYWARD NP Common Visit Codes: [id number] INP/OBS CARE(HIGH) ERIN HAYWARD NP Apr 16, 2024 12:16
[2024-04-16 13:00] VITALS: BP 109/46; PULSE 93; RESP 18; TEMP 99.3; O2SAT 95
--- NOTE | 2024-04-16 14:04 | DVH ---
Exam: CT CT AB PEL WO CON-NO ORAL OR IV History: Complicated cystitis with sepsis Comparison Study: None available TECHNIQUE: Multidetector CT of the abdomen and pelvis was performed from lung bases to pubic symphysi s. Imaging was performed without IV contrast. Axial, coronal, and sagittal multiplanar reformats were obtained from the axial data set by the technologist. RADIATION DOSE: DLP 653.83 mGy.cm; CTDI vol 12.14 mGy. Findings: Limited evaluation given noncontrast technique. Lungs: The lung bases are clear. Heart: No cardiomegaly or pericardial effusion. Liver: Unremarkable. Gallbladder: Cholecystectomy. Spleen: Unremarkable Pancreas: Unremarkable Adrenals: Unremarkable Kidneys: Unremarkable GI tract: Unremarkable : Myomatous uterus Vasculature: Unremarkable Lymphadenopathy: Absent Peritoneum: No ascites Musculoskeletal: Mild multilevel degenerative changes of the thoracolumbar spine. Soft tissues: Unremarkable Impression: 1. Limited evaluation given noncontrast technique. 2. No definite acute abdominopelvic abnormalities. 3. Urinary bladder is within normal limits.
[2024-04-16] MEDS: SODIUM CHLORIDE 0.9% 1,000 ML IV SCH (14:41)
[2024-04-16] MEDS: MEROPENEM 1GM IVPB 50 ML IV SCH (16:46)
[2024-04-16 17:00] VITALS: BP 142/65; PULSE 85; PULSE 90; RESP 19; RESP 20; TEMP 99; O2SAT 93; O2SAT 95
[2024-04-16 20:00] VITALS: PULSE 90; PULSE 95; RESP 17; O2SAT 95
[2024-04-16 21:00] VITALS: BP 123/56; PULSE 90; RESP 17; TEMP 99.6; O2SAT 95
--- NOTE | 2024-04-16 21:22 | DVHSR ---
APPROVED REPORT EXAM: Two-dimensional and M-mode echocardiogram with Doppler and color Doppler. Blood Pressure: 133/62 mmHg INDICATION patient with bacteremia. Rule out endocarditis RISK FACTORS Obesity: Height: 5'1, Weight: 147 DIMENSIONS LVDd4.0 (3.8-5.7cm)LA (2D)4.5 (1.9-4.0cm)Aortic Root2.7 (2.0-3.7cm) LVDs2.5 (2.5-4.0cm)LA (MM) (1.9-4.0cm)Aortic Cusp Exc0.7 (1.5-2.0cm) EF (%) 60.0 (55-70%)Rt. Atrium3.0 (1.9-4.0cm)Asc. Aorta cm IVSd1.0 (0.7-1.1cm)RV (D)3.1 (1.8-2.4cm) PWd1.1 (0.7-1.1cm) Mitral Valve MitralMitral Stenosis E wave1.01m/sMV Mean GR.mmHg A wave1.31m/sMV Peak GR.75mmHg E/A ratio0.82D MVAcm2 DECEL [id number] 1/2 [place] Aortic Valve Aortic ValveAortic Stenosis V10.93m/[place] Mean GR.24mmHg V23.29m/[place] Peak GR.44mmHg LVOT Diameter1.9 (1.8-2.4cm)Doppler AVA0.80cm2 Pulmonic Valve V21.13m/s Tricuspid Valve TR Velocity2.86m/s [id number] Other Information Quality : FairRhythm : Technically limited study due to patient position.body habitus. Conclusion Technically good study. Sinus rhythm. Left atrial enlargement with concentric LVH. The mitral valve is structurally normal. The aortic valve is sclerotic and calcified of [id number] rate degree. There appears to be significant restriction of mobility of the aortic leaflets. The ba se of the aortic root in the sinus of Valsalva along with the base of the superior aspect of the left atrium and base of the mitral leaflet is also showing moderate calcification. The tricuspid and pul pascale or structurally normal. Left ventricular function is preserved at 65% with normal RV function. Moderator band noted in RV. There appears to be aortic stenosis with increased velocities across the aortic valve. Peak gradient of54 mmHg with a mean gradient of24 mmHg and this yielding an aortic valve area of 0.8 cm2 consisten t with severe aortic stenosis. Moderate tricuspid regurgitation. RVSP of 36 mmHg. No pericardial effusion masses or vegetations discernible.
[2024-04-17] VITALS (8 sets, daily range): BP systolic 115–151; BP diastolic 40–64; PULSE 80–97; RESP 16–19; TEMP 98.2–100.1; O2SAT 90–96
[2024-04-17 06:13] LABS: Chloride 104 mmol/L (98-107); Sodium 139 mmol/L (136-145)
[2024-04-17 06:14] LABS: Anion Gap 12 (5-15); Basophils # (auto) 0 10 ^3/uL (0-0.2); Basophils % (auto) 0.3 % (0.0-2.0); Carbon Dioxide 23 mmol/L (20-31); Eosinophils # (auto) 0.1 10 ^3/uL (0-0.8); Eosinophils % (auto) 0.5 % (0.0-7.0); Hematocrit 38.2 % (36.0-46.0); Hemoglobin 12.8 g/dL (12.2-16.2); Lymphocytes # (auto) 1.2 10 ^3/uL (0.4-5.4); Lymphocytes % (auto) 9.4 % (10.0-50.0); Mean Corpuscular Hemoglobin 31.6 pg (28.0-32.0); Mean Corpuscular Hgb Conc. 33.5 g/dL (32.0-36.0); Mean Corpuscular Volume 94.2 fL (80.0-100.0); Monocytes # (auto) 1.4 10 ^3/uL (0-1.3); Neutrophils # (auto) 9.9 10 ^3/uL (1.6-8.6); Neutrophils % (auto) 78.8 % (37.0-80.0); Platelet Count (auto) 134 10^3/uL (140-450); Red Blood Cells 4.05 10^6/uL (4.0-5.20); Red Cell Distribution Width 12.8 % (11.8-14.3); White Blood Cell 12.5 10^3/uL (4.4-10.8)
[2024-04-17 06:15] LABS: Calcium 9.2 mg/dL (8.7-10.4)
[2024-04-17 06:19] LABS: BUN/Creatinine Ratio 20.3 (10.0-20.0); Blood Urea Nitrogen 13 mg/dL (9-23)
[2024-04-17 06:41] LABS: Glucose 125 mg/dL (74-106)
--- NOTE | 2024-04-17 10:20 | DVHPN2 ---
Subjective Patient reporting generalized body aches, bilateral flank plain, suprapubic pain. Reviewed: Care Plan, H&P Changes from previous H/P or p: No Changes General: Per HPI Eyes: No Pain, No Vision change, No Conjunctivae inflammation, No Eyelid inflammation, No Other, No Redness ENT: No Ear pain, No Ear discharge, No Nose pain, No Nose discharge, No Nose congestion, No Mouth pain, No Mouth swelling, No Throat pain, No Throat swelling, No Other Cardiovascular: No Chest Pain, No Palpitations, No Orthopnea, No Paroxysmal Noc. Dyspnea, No Edema, No Lt Headedness, No Other Respiratory: No Cough, No Dry, No Shortness of breath, No SOB with excertion, No Wheezing, No Hemoptysis, No Pleuritic Pain, No Sputum, No Other Gastrointestinal: Nausea; No Vomiting; Abdominal Pain (pelvic pain); No Diarrhea, No Constipation, No Melena, No Hematochezia, No Other Genitourinary: No Dysuria, No Frequency, No Incontinence, No Hematuria, No Retention, No Other Musculoskeletal: No other, No neck pain, No shoulder pain, No arm pain; back pain (bilateral flank pain); No hand pain, No leg pain, No foot pain Skin: No Rash, No Lesions, No Jaundice, No Bruising, No Other Objective Vitals Vital Signs Date Time Temp Pulse Resp B/P (MAP) Pulse Ox O2 Delivery O2 Flow Rate FiO2 04/17/24 10:11 141/64 04/17/24 09:00 99.0 90 18 90 99.0 04/16/24 20:00 Room Air* 0 21 Intake/Output Intake and Output 04/17/24 07:00 Intake Total 300 ml Output Total 6 ml Balance 294 ml Intake Oral 200 ml IV Total 100 ml Output Urine Total 6 ml # Voids 2 General Appearance: Alert, Oriented X3, Cooperative, mild distress HEENT: Atraumatic, PERRLA Lungs: Clear to auscultation, Normal air movement Cardiovascular: Normal S1, Normal S2 Musculoskeletal: Normal sensory function Extremities: No clubbing, No cyanosis, No edema Skin: Dry, Intact Psych/Mental Status: Mental status NL, Mood NL Medications Current Medications Medications Dose Ordered Sig/Bull Route Start Time Stop Time Status Last Admin Dose Admin Acetaminophen/ Hydrocodone Bitart 1 tab Q4HP PRN PO 04/15/24 10:15 04/17/24 06:12 1 TAB Ondansetron HCl 4 mg Q4HP PRN IV 04/15/24 10:15 04/16/24 06:06 4 MG Docusate Sodium 100 mg BIDPRN PRN PO 04/15/24 10:15 Acetaminophen 650 mg Q6HP PRN PO 04/15/24 10:15 04/16/24 11:53 650 MG Diagnostic Test (Pha) 1 strip ACHS 04/15/24 11:30 04/17/24 06:17 1 STRIP Insulin Human Regular HS SC 04/15/24 22:00 04/16/24 21:29 3 UNITS Insulin Human Regular AC SC 04/15/24 11:30 04/17/24 06:16 2 UNITS Dextrose 50 ml UD PRN IV 04/15/24 10:15 Lisinopril 10 mg DAILY PO 04/15/24 11:00 04/17/24 10:11 10 MG Meropenem 50 ml @ 17 mls/hr Q8HR IV 04/16/24 14:00 04/17/24 06:17 17 MLS/HR Sodium Chloride 1,000 ml @ 75 mls/hr [id number] IV 04/16/24 12:15 04/17/24 01:39 75 MLS/HR Laboratory Results Laboratory Tests 04/17/24 05:25 Chemistry Test 04/17/24 05:25 Calcium Level 9.2 mg/dL (8.7-10.4) Urinalysis Test 04/15/24 06:45 Urine Color Dark yellow (Yellow) Urine Clarity Ex.turbid (Clear) Urine pH 5.5 (5.0-9.0) Urine Specific [place] 1.009 (1.001-1.035) Urine Protein 1+ (Negative) H Urine Ketones Negative (Negative) Urine Blood 2+ /uL (Negative) H Urine Nitrite Negative (Negative) Urine Bilirubin Negative (Negative) Urine Urobilinogen Normal mg/dL (Negative) Urine Leukocyte Esterase 3+ /uL (Negative) Urine RBC 25 /hpf (0 - 4) Urine WBC Clumps Present /hpf (None Seen) Urine Microscopic WBC 1635 /HPF (0-5) H Urine Squamous Epithelial Cells Few /hpf (<5) Urine Bacteria None seen /hpf (None Seen) Urine Glucose 2+ mg/dL (Normal) H Microbiology Microbiology Date/Time Source Procedure Growth Status 04/15/24 07:43 Blood Blood Culture - Final Escherichia coli Complete 04/15/24 06:45 Voided Urine Urine Culture - Final Escherichia coli Complete Labs and/or images reviewed: Labs reviewed by me, Image(s) reviewed by me Assessment/Plan Assessment/Plan Impression: -sepsis with Gram-negative rods in blood -complicated cystitis -diabetes mellitus, uncontrolled -primary hypertension -aortic stenosis Plan: events: Patient continues to have bilateral flank pain. Leukocytosis improving -change antibiotic therapy to Rocephin IV 2 g daily -blood and urine cultures: Coli to blood in urine. -regular insulin sliding scale -pain management -cardiology consultation: Echocardiogram results reviewed -CT scan of abdomen and pelvis: Unremarkable -repeat labs in a.m. Total time spent with patient discussing and formulating plan of care: 35 minutes. This medical document was created using an electronic medical record system with angelcam dictation system. Although this document has been carefully reviewed, there may still be some phonetic and typographical errors. These areas are purely typographical due to imperfections of the software programs, and do not reflect any compromise in the patient's medical care. Plan discussed with: Patient, Spouse, Other (RN) My Orders Orders - ERIN HAYWARD NP Procedure Category Date Status Time Meropenem 1gm Ivpb PHA 04/16/24 In Process (Merrem 1gm/ Ns) 14:00 Ct Ab Pel Wo Con-No CT 04/16/24 Resulted Oral Or Iv 12:09 Echo 2d Mode Cardiac US 04/16/24 Resulted DOP 12:09 Sodium Chloride 0.9% PHA 04/16/24 In Process 12:15 Transfer Orders XFER 04/16/24 Transmitted 14:50 Blood Culture LEEANNA 04/18/24 Logged 04:00 Complete Blood Count LAB 04/18/24 Verified 04:00 Basic Metabolic Panel LAB 04/18/24 Verified 04:00 * Cardiology Consult CONS 04/17/24 Transmitted 08:53 Date of Service: Apr 17, 2024 Billing Provider: ERIN HAYWARD NP Common Visit Codes: [id number] INP/OBS CARE(HIGH) ERIN HAYWARD NP Apr 17, 2024 10:20
[2024-04-17] MEDS: MORPHINE SULFATE INJ 2 MG/ml SYRG IV ONE (19:32)
[2024-04-18] VITALS (9 sets, daily range): BP systolic 99–159; BP diastolic 47–80; PULSE 78–94; RESP 16–18; TEMP 97.9–100.5; O2SAT 92–98
[2024-04-18 06:24] LABS: Basophils # (auto) 0 10 ^3/uL (0-0.2); Basophils % (auto) 0.3 % (0.0-2.0); Eosinophils # (auto) 0 10 ^3/uL (0-0.8); Eosinophils % (auto) 0.5 % (0.0-7.0); Hematocrit 34.5 % (36.0-46.0); Hemoglobin 12.2 g/dL (12.2-16.2); Lymphocytes # (auto) 0.8 10 ^3/uL (0.4-5.4); Lymphocytes % (auto) 9.4 % (10.0-50.0); Mean Corpuscular Hemoglobin 32.7 pg (28.0-32.0); Mean Corpuscular Hgb Conc. 35.2 g/dL (32.0-36.0); Mean Corpuscular Volume 92.9 fL (80.0-100.0); Monocytes % (auto) 11.4 % (0.0-12.0); Neutrophils # (auto) 6.9 10 ^3/uL (1.6-8.6); Neutrophils % (auto) 78.4 % (37.0-80.0); Nucleated Red Blood Cells % 0.1 %; Platelet Count (auto) 126 10^3/uL (140-450); Red Blood Cells 3.71 10^6/uL (4.0-5.20); Red Cell Distribution Width 13.2 % (11.8-14.3); White Blood Cell 8.8 10^3/uL (4.4-10.8)
[2024-04-18 07:03] LABS: Chloride 98 mmol/L (98-107)
[2024-04-18 07:04] LABS: Anion Gap 10 (5-15); Carbon Dioxide 25 mmol/L (20-31)
[2024-04-18 07:09] LABS: BUN/Creatinine Ratio 14.3 (10.0-20.0)
[2024-04-18 07:11] LABS: Blood Urea Nitrogen 8 mg/dL (9-23); Calcium 8.3 mg/dL (8.7-10.4); Glucose 150 mg/dL (74-106); Sodium 133 mmol/L (136-145)
[2024-04-18] MEDS: cefTRIAXone 2GM/50ML D5W 50 ML IV SCH (09:27)
--- NOTE | 2024-04-18 14:06 | DVHPN2 ---
Subjective The patient is seen and examined at bedside. The patient complained of tired. Reviewed: Care Plan, H&P Changes from previous H/P or p: No Changes General: Per HPI Eyes: No Pain, No Vision change, No Conjunctivae inflammation, No Eyelid inflammation, No Other, No Redness ENT: No Ear pain, No Ear discharge, No Nose pain, No Nose discharge, No Nose congestion, No Mouth pain, No Mouth swelling, No Throat pain, No Throat swelling, No Other Cardiovascular: No Chest Pain, No Palpitations, No Orthopnea, No Paroxysmal Noc. Dyspnea, No Edema, No Lt Headedness, No Other Respiratory: No Cough, No Dry, No Shortness of breath, No SOB with excertion, No Wheezing, No Hemoptysis, No Pleuritic Pain, No Sputum, No Other Gastrointestinal: Nausea; No Vomiting; Abdominal Pain (pelvic pain); No Diarrhea, No Constipation, No Melena, No Hematochezia, No Other Genitourinary: No Dysuria, No Frequency, No Incontinence, No Hematuria, No Retention, No Other Musculoskeletal: No other, No neck pain, No shoulder pain, No arm pain; back pain (bilateral flank pain); No hand pain, No leg pain, No foot pain Skin: No Rash, No Lesions, No Jaundice, No Bruising, No Other Objective Vitals Vital Signs Date Time Temp Pulse Resp B/P (MAP) Pulse Ox O2 Delivery O2 Flow Rate FiO2 04/18/24 13:04 97.9 78 18 126/64 (84) 95 97.9 04/17/24 20:00 Room Air* 0 21 Intake/Output Intake and Output 04/18/24 07:00 Intake Total 1600 ml Balance 1600 ml Intake Oral 1600 ml # Voids 11 General Appearance: Alert, Oriented X3, Cooperative, mild distress HEENT: Atraumatic, PERRLA Lungs: Clear to auscultation, Normal air movement Cardiovascular: Normal S1, Normal S2 Musculoskeletal: Normal sensory function Extremities: No clubbing, No cyanosis, No edema Skin: Dry, Intact Psych/Mental Status: Mental status NL, Mood NL Medications Current Medications Medications Dose Ordered Sig/Bull Route Start Time Stop Time Status Last Admin Dose Admin Acetaminophen/ Hydrocodone Bitart 1 tab Q4HP PRN PO 04/15/24 10:15 04/18/24 09:25 1 TAB Ondansetron HCl 4 mg Q4HP PRN IV 04/15/24 10:15 04/16/24 06:06 4 MG Docusate Sodium 100 mg BIDPRN PRN PO 04/15/24 10:15 Acetaminophen 650 mg Q6HP PRN PO 04/15/24 10:15 04/17/24 21:04 650 MG Diagnostic Test (Pha) 1 strip ACHS 04/15/24 11:30 04/18/24 11:04 1 STRIP Insulin Human Regular HS SC 04/15/24 22:00 04/17/24 22:13 3 UNITS Insulin Human Regular AC SC 04/15/24 11:30 04/18/24 11:12 6 UNITS Dextrose 50 ml UD PRN IV 04/15/24 10:15 Lisinopril 10 mg DAILY PO 04/15/24 11:00 04/18/24 09:26 10 MG Sodium Chloride 1,000 ml @ 75 mls/hr [id number] IV 04/16/24 12:15 04/18/24 04:17 75 MLS/HR Ceftriaxone Sodium/Dextrose 50 ml @ 50 mls/hr DAILY IV 04/18/24 10:00 04/18/24 09:27 50 MLS/HR Laboratory Results Laboratory Tests 04/18/24 05:43 Chemistry Test 04/18/24 05:43 Calcium Level 8.3 mg/dL (8.7-10.4) L Urinalysis Test 04/15/24 06:45 Urine Color Dark yellow (Yellow) Urine Clarity Ex.turbid (Clear) Urine pH 5.5 (5.0-9.0) Urine Specific [place] 1.009 (1.001-1.035) Urine Protein 1+ (Negative) H Urine Ketones Negative (Negative) Urine Blood 2+ /uL (Negative) H Urine Nitrite Negative (Negative) Urine Bilirubin Negative (Negative) Urine Urobilinogen Normal mg/dL (Negative) Urine Leukocyte Esterase 3+ /uL (Negative) Urine RBC 25 /hpf (0 - 4) Urine WBC Clumps Present /hpf (None Seen) Urine Microscopic WBC 1635 /HPF (0-5) H Urine Squamous Epithelial Cells Few /hpf (<5) Urine Bacteria None seen /hpf (None Seen) Urine Glucose 2+ mg/dL (Normal) H Microbiology Microbiology Date/Time Source Procedure Growth Status 04/15/24 07:43 Blood Blood Culture - Final Escherichia coli Complete 04/15/24 06:45 Voided Urine Urine Culture - Final Escherichia coli Complete Labs and/or images reviewed: Labs reviewed by me Assessment/Plan Assessment/Plan -sepsis with Gram-negative rods in blood -complicated cystitis -diabetes mellitus, uncontrolled -primary hypertension -aortic stenosis Plan: Continuing current management. Continuing with IV antibiotic Rocephin. Blood culture had been repeat and waiting for final resolved. Continuing sliding scale insulin with Regular insulin Continuing pain medication Appreciate art manager's input This medical document was created using an electronic medical record system with [employer] direct computerized dictation system. Although this document has been carefully reviewed, there may still be some phonetic and typographical errors. These areas are purely typographical due to imperfections of the software programs, and do not reflect any compromise in the patient's medical care. Plan discussed with: Patient Date of Service: Apr 18, 2024 Billing Provider: AUSTIN BETH MD Common Visit Codes: [id number] INP/OBS CARE(HIGH) AUSTIN BETH MD Apr 18, 2024 14:05
[2024-04-18] MEDS: POTASSIUM CHL 20 Meq TABLET PO ONE (15:03)
[2024-04-19] VITALS (9 sets, daily range): BP systolic 130–174; BP diastolic 60–82; PULSE 81–90; RESP 17–18; TEMP 98–100.5; O2SAT 92–98
--- NOTE | 2024-04-19 22:26 | DVHPN2 ---
Subjective The patient is seen and examined at bedside. Today he feels little bit better. No fever or chill. Reviewed: Care Plan, H&P Changes from previous H/P or p: No Changes General: Per HPI Eyes: No Pain, No Vision change, No Conjunctivae inflammation, No Eyelid inflammation, No Other, No Redness ENT: No Ear pain, No Ear discharge, No Nose pain, No Nose discharge, No Nose congestion, No Mouth pain, No Mouth swelling, No Throat pain, No Throat swelling, No Other Cardiovascular: No Chest Pain, No Palpitations, No Orthopnea, No Paroxysmal Noc. Dyspnea, No Edema, No Lt Headedness, No Other Respiratory: No Cough, No Dry, No Shortness of breath, No SOB with excertion, No Wheezing, No Hemoptysis, No Pleuritic Pain, No Sputum, No Other Gastrointestinal: Nausea; No Vomiting; Abdominal Pain (pelvic pain); No Diarrhea, No Constipation, No Melena, No Hematochezia, No Other Genitourinary: No Dysuria, No Frequency, No Incontinence, No Hematuria, No Retention, No Other Musculoskeletal: No other, No neck pain, No shoulder pain, No arm pain; back pain (bilateral flank pain); No hand pain, No leg pain, No foot pain Skin: No Rash, No Lesions, No Jaundice, No Bruising, No Other Objective Vitals Vital Signs Date Time Temp Pulse Resp B/P (MAP) Pulse Ox O2 Delivery O2 Flow Rate FiO2 04/19/24 21:00 99.9 86 17 138/70 (92) 96 99.9 04/19/24 20:00 Room Air* 0 21 Intake/Output Intake and Output 04/19/24 07:00 Intake Total 1200 ml Balance 1200 ml Intake Oral 1150 ml IV Total 50 ml # Voids 11 General Appearance: Alert, Oriented X3, Cooperative, mild distress HEENT: Atraumatic, PERRLA Lungs: Clear to auscultation, Normal air movement Cardiovascular: Normal S1, Normal S2 Musculoskeletal: Normal sensory function Extremities: No clubbing, No cyanosis, No edema Skin: Dry, Intact Psych/Mental Status: Mental status NL, Mood NL Medications Current Medications Medications Dose Ordered Sig/Bull Route Start Time Stop Time Status Last Admin Dose Admin Acetaminophen/ Hydrocodone Bitart 1 tab Q4HP PRN PO 04/15/24 10:15 04/19/24 20:33 1 TAB Ondansetron HCl 4 mg Q4HP PRN IV 04/15/24 10:15 04/19/24 06:58 4 MG Docusate Sodium 100 mg BIDPRN PRN PO 04/15/24 10:15 Acetaminophen 650 mg Q6HP PRN PO 04/15/24 10:15 04/19/24 00:20 650 MG Diagnostic Test (Pha) 1 strip ACHS 04/15/24 11:30 04/19/24 22:12 1 STRIP Insulin Human Regular HS SC 04/15/24 22:00 04/18/24 21:53 3 UNITS Insulin Human Regular AC SC 04/15/24 11:30 04/19/24 17:08 3 UNITS Dextrose 50 ml UD PRN IV 04/15/24 10:15 Lisinopril 10 mg DAILY PO 04/15/24 11:00 04/19/24 10:49 10 MG Sodium Chloride 1,000 ml @ 75 mls/hr [id number] IV 04/16/24 12:15 04/19/24 17:50 75 MLS/HR Ceftriaxone Sodium/Dextrose 50 ml @ 50 mls/hr DAILY IV 04/18/24 10:00 04/19/24 11:03 50 MLS/HR Hydralazine HCl 10 mg Q6HP PRN IV 04/19/24 08:30 Laboratory Results Laboratory Tests 04/18/24 05:43 Urinalysis Test 04/15/24 06:45 Urine Color Dark yellow (Yellow) Urine Clarity Ex.turbid (Clear) Urine pH 5.5 (5.0-9.0) Urine Specific [place] 1.009 (1.001-1.035) Urine Protein 1+ (Negative) H Urine Ketones Negative (Negative) Urine Blood 2+ /uL (Negative) H Urine Nitrite Negative (Negative) Urine Bilirubin Negative (Negative) Urine Urobilinogen Normal mg/dL (Negative) Urine Leukocyte Esterase 3+ /uL (Negative) Urine RBC 25 /hpf (0 - 4) Urine WBC Clumps Present /hpf (None Seen) Urine Microscopic WBC 1635 /HPF (0-5) H Urine Squamous Epithelial Cells Few /hpf (<5) Urine Bacteria None seen /hpf (None Seen) Urine Glucose 2+ mg/dL (Normal) H Microbiology Microbiology Date/Time Source Procedure Growth Status 04/18/24 09:02 Blood Blood Culture - Preliminary NO GROWTH AFTER 24 HOURS OF INCUBATION. Resulted 04/15/24 06:45 Voided Urine Urine Culture - Final Escherichia coli Complete Labs and/or images reviewed: Labs reviewed by me Assessment/Plan Assessment/Plan -sepsis with E coli in blood -E coli bacteremia, blood culture repeat x2 is negative. -complicated cystitis -diabetes mellitus, uncontrolled -primary hypertension -aortic stenosis Plan: Continuing current management. Continuing with IV antibiotic Rocephin. Blood culture had been repeat and waiting for final resolved. Continuing sliding scale insulin with Regular insulin Continuing pain medication Appreciate bsa/aml compliance officer's input Plan discussed with: Patient My Orders Orders - AUSTIN BETH MD Procedure Category Date Status Time Hydralazine Injection PHA 04/19/24 In Process (Apresoline Inject 08:30 Date of Service: Apr 19, 2024 Billing Provider: AUSTIN BETH MD Common Visit Codes: [id number] INP/OBS CARE(HIGH) AUSTIN BETH MD Apr 19, 2024 22:26
[2024-04-20] VITALS (8 sets, daily range): BP systolic 137–179; BP diastolic 62–79; PULSE 72–89; RESP 16–20; TEMP 98–98.9; O2SAT 95–99
[2024-04-20] MEDS: hydrALAZINE HCL 20 MG/ML VL IV PRN (04:09)
[2024-04-20 10:17] LABS: Basophils # (auto) 0 10 ^3/uL (0-0.2); Basophils % (auto) 0.4 % (0.0-2.0); Eosinophils # (auto) 0 10 ^3/uL (0-0.8); Eosinophils % (auto) 0.5 % (0.0-7.0); Hematocrit 38.1 % (36.0-46.0); Hemoglobin 12.9 g/dL (12.2-16.2); Lymphocytes # (auto) 1.2 10 ^3/uL (0.4-5.4); Lymphocytes % (auto) 14.6 % (10.0-50.0); Mean Corpuscular Hemoglobin 31.4 pg (28.0-32.0); Mean Corpuscular Hgb Conc. 33.8 g/dL (32.0-36.0); Mean Corpuscular Volume 92.9 fL (80.0-100.0); Monocytes % (auto) 12.5 % (0.0-12.0); Neutrophils # (auto) 5.9 10 ^3/uL (1.6-8.6); Nucleated Red Blood Cells % 0.1 %; Platelet Count (auto) 171 10^3/uL (140-450); Red Blood Cells 4.11 10^6/uL (4.0-5.20); Red Cell Distribution Width 13.1 % (11.8-14.3); White Blood Cell 8.2 10^3/uL (4.4-10.8)
[2024-04-20 10:34] LABS: Chloride 100 mmol/L (98-107); Sodium 137 mmol/L (136-145)
[2024-04-20 10:35] LABS: Anion Gap 7 (5-15); Carbon Dioxide 30 mmol/L (20-31)
[2024-04-20 10:39] LABS: Calcium 8.6 mg/dL (8.7-10.4); Potassium 2.9 mmol/L (3.5-5.1)
[2024-04-20 10:40] LABS: BUN/Creatinine Ratio 11.5 (10.0-20.0)
[2024-04-20 10:50] LABS: Blood Urea Nitrogen 6 mg/dL (9-23); Glucose 136 mg/dL (74-106); Magnesium 1.4 mg/dL (1.6-2.6)
--- NOTE | 2024-04-20 14:23 | DVHINCON2 ---
Date of service: Apr 20, 2024 History of Present Illness Honey Galan is a 63-year-old female with past medical history of diabetes, hypertension, and fatty liver, who came in due to abdominal pain. Pat ciarant states her pain is in her lower abdomen/pelvic region, it started last Saturday with associated dysuria and frequency. She states her symptoms where worsening and progressed to bilateral flank pain causing her to come in. Cardiovascular: HTN Hepatobiliary: Other (fatty liver) Endocrine: Diabetes Past Surgical History: Cholecystectomy, Cataract Removal (bilateral) Smoke: No ALCOHOL: rare Drugs: None Lives: with Family Domestic Violence: Neg Past Medical History reviewed Family History: Cardiovascular disease G8 MOTHER, Allergies: Coded Allergies: NO KNOWN ALLERGIES (Unverified , 07/23/22) Home Meds Reported Medications Metformin Hydrochloride (Metformin Hcl) 500 Mg Tab, 1 TAB PO BID, #60 TAB 3 Refills 04/15/24 Lisinopril (Lisinopril) 10 Mg Tab, 1 TAB PO BID 04/15/24 Ursodiol (Ursodiol) 300 Mg Cap, 1 CAP PO BID 04/15/24 Discontinued Scripts Hydrocodone-Acetaminophen (Hydrocodone/Acetaminophen 10-325 mg) 1 Tab Tab, 1 TAB PO QIDPRN, #20 TAB Prov:LISA PALUMBO MD 12/18/23 Amoxicillin & Pot Clavulanate (AUGMENTIN TABLET) 875 Mg Tb, 875 MG PO BID for 5 Days, #10 TAB Prov:JER SOSA MD 12/17/23 Hydrocodone-Acetaminophen (Hydrocodone Bitartrate/AC 5-325 mg) 1 Tab Tab, 1 TAB PO BID PRN, #12 TAB 0 Refills Prov:RAFAELA HINOJOSA [employer]ENTS [employer]ER 07/23/22 Review of Systems 10 pt ros otherwise negative Vital Signs Vital Signs Date Time Temp Pulse Resp B/P (MAP) Pulse Ox O2 Delivery O2 Flow Rate FiO2 04/20/24 10:24 143/78 04/20/24 09:00 98.4 81 18 98 98.4 04/19/24 20:00 Room Air* 0 21 Physical Exam nad s1 s2 rrr 3/6 s ystolic murmur ctab soft nt/nd Labs/Diagnostic Data Labs Test 04/20/24 12:04 3/3/25 10:01 04/16/24 06:00 04/15/24 07:25 Range/Units POC Glucose 117 H 70-106 mg/dl White Blood Count 8.2 4.4-10.8 10^3/uL Red Blood Count 4.11 4.0-5.20 10^6/uL Hemoglobin 12.9 12.2-16.2 g/dL Hematocrit 38.1 # 36.0-46.0 % Mean Corpuscular Volume 92.9 80.0-100.0 fL Mean Corpuscular Hemoglobin 31.4 28.0-32.0 pg Mean Corpuscular Hemoglobin Concent 33.8 32.0-36.0 g/dL Red Cell Distribution Width 13.1 11.8-14.3 % Platelet Count 171 140-450 10^3/uL Mean Platelet Volume 9.1 6.9-10.8 fL Neutrophils (%) (Auto) 72.0 37.0-80.0 % Lymphocytes (%) (Auto) 14.6 10.0-50.0 % Monocytes (%) (Auto) 12.5 H 0.0-12.0 % Eosinophils (%) (Auto) 0.5 0.0-7.0 % Basophils (%) (Auto) 0.4 0.0-2.0 % Neutrophils # (Auto) 5.9 1.6-8.6 10 ^3/uL Lymphocytes # (Auto) 1.2 0.4-5.4 10 ^3/uL Monocytes # (Auto) 1.0 0-1.3 10 ^3/uL Eosinophils # (Auto) 0 0-0.8 10 ^3/uL Basophils # (Auto) 0 0-0.2 10 ^3/uL Nucleated Red Blood Cells 0.1 % Sodium Level 137 136-145 mmol/L Potassium Level 2.9 L 3.5-5.1 mmol/L Chloride Level 100 98-107 mmol/L Carbon Dioxide Level 30 20-31 mmol/L Anion Gap 7 5-15 Blood Urea Nitrogen 6 L 9-23 mg/dL Creatinine 0.52 L 0.550-1.02 mg/dL Glomerular Filtration Rate Calc 105 >90 mL/min BUN/Creatinine Ratio 11.5 10.0-20.0 Serum Glucose 136 H 74-106 mg/dL Calcium Level 8.6 L 8.7-10.4 mg/dL Magnesium Level 1.4 L 1.6-2.6 mg/dL Total Bilirubin 0.5 0.2-1.0 mg/dL Aspartate Amino Transferase (AST) 21 13-40 U/L Alanine Aminotransferase (ALT) 16 7-40 U/L Alkaline Phosphatase 102 46-116 U/L Total Protein 6.1 5.7-8.2 g/dL Albumin 3.2 3.2-4.8 g/dL Hemoglobin A1c 10.4 H <5.7 % A1C Lactic Acid Level 1.7 0.4-2.0 mmol/L Test 04/15/24 06:45 Range/Units Urine Color Dark yellow Yellow Urine Clarity Ex.turbid Clear Urine pH 5.5 5.0-9.0 Urine Specific [place] 1.009 1.001-1.035 Urine Protein 1+ H Negative Urine Ketones Negative Negative Urine Blood 2+ H Negative /uL Urine Nitrite Negative Negative Urine Bilirubin Negative Negative Urine Urobilinogen Normal Negative mg/dL Urine Leukocyte Esterase 3+ Negative /uL Urine RBC 25 0 - 4 /hpf Urine WBC Clumps Present None Seen /hpf Urine Microscopic WBC 1635 H 0-5 /HPF Urine Squamous Epithelial Cells Few <5 /hpf Urine Bacteria None seen None Seen /hpf Urine Glucose 2+ H Normal mg/dL Microbiology Date/Time Source Procedure Growth Status 04/18/24 09:02 Blood Blood Culture - Preliminary NO GROWTH AFTER 48 HOURS OF INCUBATION. Resulted 04/15/24 06:45 Voided Urine Urine Culture - Final Escherichia coli Complete Assessment aortic stenosis e coli bactermia gram - sepsis uti Plan/Recommendation needs outpt valve workup once infection clears, spoke to daughter paula and pt repeat blood cx is - wbc is improving if infection worsens, consider ROXIE d/w TRANSACTION[employer] Donovan Plan discussed with: Patient, Spouse, Daughter CALEB STOKES Apr 20, 2024 14:23
--- NOTE | 2024-04-20 15:54 | DVHPN2 ---
Subjective Patient reporting generalized body aches, bilateral flank plain, suprapubic pain. Reviewed: Care Plan, H&P Changes from previous H/P or p: No Changes General: Per HPI Eyes: No Pain, No Vision change, No Conjunctivae inflammation, No Eyelid inflammation, No Other, No Redness ENT: No Ear pain, No Ear discharge, No Nose pain, No Nose discharge, No Nose congestion, No Mouth pain, No Mouth swelling, No Throat pain, No Throat swelling, No Other Cardiovascular: No Chest Pain, No Palpitations, No Orthopnea, No Paroxysmal Noc. Dyspnea, No Edema, No Lt Headedness, No Other Respiratory: No Cough, No Dry, No Shortness of breath, No SOB with excertion, No Wheezing, No Hemoptysis, No Pleuritic Pain, No Sputum, No Other Gastrointestinal: Nausea; No Vomiting; Abdominal Pain (pelvic pain); No Diarrhea, No Constipation, No Melena, No Hematochezia, No Other Genitourinary: No Dysuria, No Frequency, No Incontinence, No Hematuria, No Retention, No Other Musculoskeletal: No other, No neck pain, No shoulder pain, No arm pain; back pain (bilateral flank pain); No hand pain, No leg pain, No foot pain Skin: No Rash, No Lesions, No Jaundice, No Bruising, No Other Objective Vitals Vital Signs Date Time Temp Pulse Resp B/P (MAP) Pulse Ox O2 Delivery O2 Flow Rate FiO2 04/20/24 13:00 98.4 86 20 152/70 (97) 97 98.4 04/19/24 20:00 Room Air* 0 21 Intake/Output Intake and Output 04/20/24 06:59 Intake Total 1790 ml Balance 1790 ml Intake Oral 790 ml IV Total 1000 ml # Voids 16 General Appearance: Alert, Oriented X3, Cooperative, No acute distress HEENT: Atraumatic, PERRLA Lungs: Clear to auscultation, Normal air movement Cardiovascular: Normal S1, Normal S2 Genitourinary: No Apparent Abnormalities Musculoskeletal: Normal sensory function Extremities: No clubbing, No cyanosis, No edema Skin: Dry, Intact Psych/Mental Status: Mental status NL, Mood NL Medications Current Medications Medications Dose Ordered Sig/Bull Route Start Time Stop Time Status Last Admin Dose Admin Acetaminophen/ Hydrocodone Bitart 1 tab Q4HP PRN PO 04/15/24 10:15 04/19/24 20:33 1 TAB Ondansetron HCl 4 mg Q4HP PRN IV 04/15/24 10:15 04/19/24 06:58 4 MG Docusate Sodium 100 mg BIDPRN PRN PO 04/15/24 10:15 Acetaminophen 650 mg Q6HP PRN PO 04/15/24 10:15 04/20/24 04:11 650 MG Diagnostic Test (Pha) 1 strip ACHS 04/15/24 11:30 04/20/24 11:42 1 STRIP Insulin Human Regular HS SC 04/15/24 22:00 04/20/24 06:31 3 UNITS Insulin Human Regular AC SC 04/15/24 11:30 04/20/24 06:33 3 UNITS Dextrose 50 ml UD PRN IV 04/15/24 10:15 Lisinopril 10 mg DAILY PO 04/15/24 11:00 04/20/24 10:24 10 MG Sodium Chloride 1,000 ml @ 75 mls/hr [id number] IV 04/16/24 12:15 04/20/24 09:13 75 MLS/HR Ceftriaxone Sodium/Dextrose 50 ml @ 50 mls/hr DAILY IV 04/18/24 10:00 04/20/24 09:13 50 MLS/HR Hydralazine HCl 10 mg Q6HP PRN IV 04/19/24 08:30 04/20/24 04:09 10 MG Magnesium Sulfate/ Dextrose 100 ml @ 100 mls/hr Q1HR IV 04/20/24 15:00 04/20/24 16:59 Laboratory Results Laboratory Tests 04/20/24 10:01 Chemistry Test 04/20/24 10:01 Calcium Level 8.6 mg/dL (8.7-10.4) L Magnesium Level 1.4 mg/dL (1.6-2.6) L Urinalysis Test 04/15/24 06:45 Urine Color Dark yellow (Yellow) Urine Clarity Ex.turbid (Clear) Urine pH 5.5 (5.0-9.0) Urine Specific [place] 1.009 (1.001-1.035) Urine Protein 1+ (Negative) H Urine Ketones Negative (Negative) Urine Blood 2+ /uL (Negative) H Urine Nitrite Negative (Negative) Urine Bilirubin Negative (Negative) Urine Urobilinogen Normal mg/dL (Negative) Urine Leukocyte Esterase 3+ /uL (Negative) Urine RBC 25 /hpf (0 - 4) Urine WBC Clumps Present /hpf (None Seen) Urine Microscopic WBC 1635 /HPF (0-5) H Urine Squamous Epithelial Cells Few /hpf (<5) Urine Bacteria None seen /hpf (None Seen) Urine Glucose 2+ mg/dL (Normal) H Microbiology Microbiology Date/Time Source Procedure Growth Status 04/18/24 09:02 Blood Blood Culture - Preliminary NO GROWTH AFTER 48 HOURS OF INCUBATION. Resulted 04/15/24 06:45 Voided Urine Urine Culture - Final Escherichia coli Complete Labs and/or images reviewed: Labs reviewed by me, Image(s) reviewed by me Assessment/Plan Assessment/Plan Impression: -sepsis with Gram-negative rods in blood -complicated cystitis -diabetes mellitus, uncontrolled -primary hypertension -aortic stenosis Plan: events: Repeat blood culture negative. Discussed case with Cardiology. ROXIE will be held at this time. -Continue Rocephin 2 g IV daily -blood and urine cultures: Coli to blood in urine. -regular insulin sliding scale -pain management -cardiology consultation: Echocardiogram results reviewed -CT scan of abdomen and pelvis: Unremarkable -repeat labs in a.m. Total time spent with patient discussing and formulating plan of care: 35 minutes. This medical document was created using an electronic medical record system with [employer] dictation system. Although this document has been carefully reviewed, there may still be some phonetic and typographical errors. These areas are purely typographical due to imperfections of the software programs, and do not reflect any compromise in the patient's medical care. Plan discussed with: Patient, Other (RN) My Orders Orders - ERIN HAYWARD NP Procedure Category Date Status Time Magnesium Sulfate PHA 04/20/24 In Process 1gm/100ml 15:00 2 Gm Sodium Diet DIET 04/20/24 Transmitted Dinner Lisinopril Tablet PHA 04/21/24 Verified (Zestril Tablet) 10:00 1/2 Ns W Potassium PHA 04/20/24 Verified 20meq 16:00 Basic Metabolic Panel LAB 04/21/24 Verified 04:00 Magnesium LAB 04/21/24 Verified 04:00 Date of Service: Apr 20, 2024 Billing Provider: ERIN HAYWARD NP Common Visit Codes: [id number] INP/OBS CARE(HIGH) ERIN HAYWARD NP Apr 20, 2024 15:54
[2024-04-20] MEDS: POTASSIUM EFFERVESENT TAB 25 MEQ PO ONE (17:26)
[2024-04-20] MEDS: SOD CHL 0.45% WITH 20MEQ KCL 1,000 ML IV ONE (19:46)
[2024-04-20] MEDS: MAGNESIUM SULFATE 1GM/100ML 100 ML IV SCH (20:14)
[2024-04-21] VITALS (7 sets, daily range): BP systolic 136–150; BP diastolic 53–76; PULSE 77–84; RESP 16–18; TEMP 97.6–98.4; O2SAT 93–98
[2024-04-21 06:44] LABS: Calcium 8.7 mg/dL (8.7-10.4); Chloride 99 mmol/L (98-107); Sodium 137 mmol/L (136-145)
[2024-04-21 06:45] LABS: Anion Gap 9 (5-15); Carbon Dioxide 29 mmol/L (20-31)
[2024-04-21 06:51] LABS: Magnesium 1.8 mg/dL (1.6-2.6)
[2024-04-21 07:05] LABS: BUN/Creatinine Ratio 10.2 (10.0-20.0); Blood Urea Nitrogen < 5 mg/dL (9-23); Glucose 127 mg/dL (74-106)
[2024-04-21] MEDS: LISINOPRIL 5 MG TAB PO SCH (10:15)
[2024-04-21] MEDS: POTASSIUM EFFERVESENT TAB 25 MEQ PO ONE (11:55)
[2024-04-21] MEDS ORDERED: BLOO1KIT60 XX (13:10)
[2024-04-21] MEDS ORDERED: LEVO500T91 PO (13:10)
--- NOTE | 2024-04-21 13:13 | DVHDS2 ---
Discharge Summary Date of Admission Apr 15, 2024 at 10:02 Date of Discharge: Apr 21, 2024 Admitting Diagnosis Pyelonephritis Labs/Diagnostic Data: Laboratory Results Test 04/21/24 11:40 04/21/24 05:21 04/20/24 10:01 04/16/24 06:00 POC Glucose 217 mg/dl (70-106) Sodium Level 137 mmol/L (136-145) Potassium Level 3.0 mmol/L (3.5-5.1) Chloride Level 99 mmol/L (98-107) Carbon Dioxide Level 29 mmol/L (20-31) Anion Gap 9 (5-15) Blood Urea Nitrogen < 5 mg/dL (9-23) Creatinine 0.49 mg/dL (0.550-1.02) Glomerular Filtration Rate Calc 107 mL/min (>90) BUN/Creatinine Ratio 10.2 (10.0-20.0) Serum Glucose 127 mg/dL (74-106) Calcium Level 8.7 mg/dL (8.7-10.4) Magnesium Level 1.8 mg/dL (1.6-2.6) White Blood Count 8.2 10^3/uL (4.4-10.8) Red Blood Count 4.11 10^6/uL (4.0-5.20) Hemoglobin 12.9 g/dL (12.2-16.2) Hematocrit 38.1 % (36.0-46.0) Mean Corpuscular Volume 92.9 fL (80.0-100.0) Mean Corpuscular Hemoglobin 31.4 pg (28.0-32.0) Mean Corpuscular Hemoglobin Concent 33.8 g/dL (32.0-36.0) Red Cell Distribution Width 13.1 % (11.8-14.3) Platelet Count 171 10^3/uL (140-450) Mean Platelet Volume 9.1 fL (6.9-10.8) Neutrophils (%) (Auto) 72.0 % (37.0-80.0) Lymphocytes (%) (Auto) 14.6 % (10.0-50.0) Monocytes (%) (Auto) 12.5 % (0.0-12.0) Eosinophils (%) (Auto) 0.5 % (0.0-7.0) Basophils (%) (Auto) 0.4 % (0.0-2.0) Neutrophils # (Auto) 5.9 10 ^3/uL (1.6-8.6) Lymphocytes # (Auto) 1.2 10 ^3/uL (0.4-5.4) Monocytes # (Auto) 1.0 10 ^3/uL (0-1.3) Eosinophils # (Auto) 0 10 ^3/uL (0-0.8) Basophils # (Auto) 0 10 ^3/uL (0-0.2) Nucleated Red Blood Cells 0.1 % Total Bilirubin 0.5 mg/dL (0.2-1.0) Aspartate Amino Transferase (AST) 21 U/L (13-40) Alanine Aminotransferase (ALT) 16 U/L (7-40) Alkaline Phosphatase 102 U/L (46-116) Total Protein 6.1 g/dL (5.7-8.2) Albumin 3.2 g/dL (3.2-4.8) Test 04/15/24 07:25 04/15/24 06:45 Hemoglobin A1c 10.4 % A1C (<5.7) Lactic Acid Level 1.7 mmol/L (0.4-2.0) Urine Color Dark yellow (Yellow) Urine Clarity Ex.turbid (Clear) Urine pH 5.5 (5.0-9.0) Urine Specific [place] 1.009 (1.001-1.035) Urine Protein 1+ (Negative) Urine Ketones Negative (Negative) Urine Blood 2+ /uL (Negative) Urine Nitrite Negative (Negative) Urine Bilirubin Negative (Negative) Urine Urobilinogen Normal mg/dL (Negative) Urine Leukocyte Esterase 3+ /uL (Negative) Urine RBC 25 /hpf (0 - 4) Urine WBC Clumps Present /hpf (None Seen) Urine Microscopic WBC 1635 /HPF (0-5) Urine Squamous Epithelial Cells Few /hpf (<5) Urine Bacteria None seen /hpf (None Seen) Urine Glucose 2+ mg/dL (Normal) Other Laboratory Tests 04/21/24 05:21 04/20/24 10:01 Brief Hx & Hospital Course: History of Present Illness Honey Galan is a 63-year-old female with past medical history of diabetes, hypertension, and fatty liver, who came in due to abdominal pain. Patient states her pain is in her lower abdomen/pelvic region, it started last Saturday with associated dysuria and frequency. She states her symptoms where worsening and progressed to bilateral flank pain causing her to come in. Course of hospitalization: Patient was treated with IV Rocephin, with improvement with the patient was symptoms. She was found to have E coli in blood in urine. White blood cell count is now improved. Blood sugars have been controlled with regular insulin sliding scale. Patient has adequate pain management. Cardiology consultation was obtained to assess if patient needed ROXIE. TTE did revealed the patient does have aortic stenosis. At this time she will have no ROXIE and we will follow up regarding her valvular disorder has an outpatient. Patient was agreeable to be discharged home. She will be continued with antibiotic therapy in the form of Levaquin 500 mg p.o. daily x7 days. She will also follow up with the discharge Clinic in one week, her PCP in 1-2 weeks, continue all previous home medications. Request for made for a new glucometer which was also prescribed. All questions answered to the patient and her daughter who was bedside. Physical examination General: Alert and Oriented x3. No acute distress. Well-nourished. Eyes: EOMI. Anicteric. HENT: Moist mucous membranes. Lungs: Clear to auscultation bilaterally. No accessory muscle use. Cardiovascular: Regular rate and rhythm. No murmur. No JVD. Abdomen: Soft, non-tender and non-distended. No palpable masses. Extremities: No edema. Non-tender. Skin: No rashes or lesions. Warm. Neurologic: No focal neurological deficits. CN II-XII grossly intact, but not individually tested. Psychiatric: Cooperative. Appropriate mood and affect. Total time spent with patient discussing and formulating plan of care: 35 minutes. This medical document was created using an electronic medical record system with [employer] dictation system. Although this document has been carefully reviewed, there may still be some phonetic and typographical errors. These areas are purely typographical due to imperfections of the software programs, and do not reflect any compromise in the patient's medical care. Condition at Discharge: Guarded Final Diagnosis/Problems List Sepsis with E coli in the blood Secondary diagnosis: -complicated cystitis -diabetes mellitus, uncontrolled -primary hypertension -aortic stenosis -constipation Discharge Disposition: Home Discharge Instruct/Medications Diet: Consistent carbohydrate, Cardiac 2g Na,low cholest Activity: No Restrictions, As Tolerated Follow Up/Referral: PCP in 1-2 weeks DC clinic in one week Medications: Per medication reconciliation form 36 Discharge Statement: "Patient was advised to return to the ER or call 911 if any headaches, dizziness, shortness of breath, chest pain, abdominal pain, bleeding, fevers, or worsening of medical condition. Patient was counseled about treatment plan, medications, possible side effects, patientverbalized understanding. All questions were answered to the best of my ability. This discharge took greater then 30 minutes in planning, reviewing documentation, counseling the patient, and discussing with other team members." ASSESSMENT ASSESSMENT Assessment Sepsis with E coli in the blood Date of Service: Apr 21, 2024 Billing Provider: ERIN HAYWARD NP Common Visit Codes: [id number]/[id number] DISCH DAY >30min ERIN HAYWARD NP Apr 21, 2024 13:13
[2024-04-21] MEDS: LACTULOSE 20Gm/30ML SOLN PO ONE (15:38)
[2024-04-21] MEDS: DOCUSATE SOD 100 MG CAP PO PRN (15:38)
== END 2024-04-21 16:55 | disposition home or self-care (01) | DRG 720 ==
LOC: ER 06:33 → OVERFLOW 10:02 → EAST 04-16 15:27 → TELE-EAST 04-17 00:25
PROVIDERS: ADMIT Nurse Practitioner Acute Care; ATTEND Nurse Practitioner Acute Care
DX: A41.51 Sepsis due to Escherichia coli [E. coli] (principal); N17.0 Acute kidney failure with tubular necrosis; K76.0 Fatty (change of) liver, not elsewhere classified; N12 Tubulo-interstitial nephritis, not specified as acute or chronic; N30.00 Acute cystitis without hematuria; E11.9 Type 2 diabetes mellitus without complications; I10 Essential (primary) hypertension; I35.0 Nonrheumatic aortic (valve) stenosis; Z79.2 Long term (current) use of antibiotics; Z79.899 Other long term (current) drug therapy; Z90.49 Acquired absence of other specified parts of digestive tract; Z79.84 Long term (current) use of oral hypoglycemic drugs; Z82.49 Family history of ischemic heart disease and other diseases of the circulatory system
CPT/HCPCS: 36415; 71045; 74176; 80048; 80053; 81001; 82962; 83036; 83605; 83735; 85025; 87040; 87077; 87086; 87088; 87186; 93306; 96365; 96367; 96375; 99291; G0378; J0692; J1815; J2185; J2405